=== PATIENT | female | born 1970 ===

== ENCOUNTER 2022-03-27 19:29 | Inpatient (IN) | payer OTHER ==
[~2022-03-27] VITALS: Ht 165.1 cm; Wt 68.0 kg
[2022-03-27] MEDS ORDERED: SODIUM CHLORIDE 0.9% 1,000 ML IV ONE ×2 (22:45)
[2022-03-27] MEDS ORDERED: ACETAMINOPHEN 1000 MG/ISO-OSM 100 ML IV ONE (22:45)
[2022-03-27] MEDS ORDERED: KETOROLAC TROMETHAMINE 30 MG/ML VIAL IVP ONE (22:45)
[2022-03-27 23:20] LABS: EOSINOPHILS % (AUTO) 0 % (1.0-6.0); MEAN CORPUSCULAR HEMOGLOBIN 27.2 pg (26.0-34.0); MEAN CORPUSCULAR HGB CONC 33.3 G/dL (31.0-37.0); MONOCYTES # (AUTO) 1.3 K/uL (0.1-1.0)
[2022-03-27 23:27] LABS: BASOPHILS % (AUTO) 0.3 % (0.0-2.0); HEMATOCRIT 35.1 % (36-46); HEMOGLOBIN 11.7 g/dL (12.0-16.0); LYMPHOCYTES % (AUTO) 4.4 % (22.0-44.0); MEAN CORPUSCULAR VOLUME 82 fL (80-100); MONOCYTES % (AUTO) 5.5 % (2.0-9.0); NEUTROPHILS # (AUTO) 21.3 K/uL (1.8-7.7); PLATELET COUNT (AUTO) 263 K/uL (150-450); RED BLOOD CELL COUNT(AUTO) 4.29 MIL/uL (4.00-5.20); RED CELL DISTRIBUTION WIDTH 16.3 % (11.5-14.5)
[2022-03-27 23:29] LABS: NEUTROPHILS % (AUTO) 89.8 % (40.0-70.0)
[2022-03-27 23:35] LABS: ANION GAP 7 mmol/L (8-16); CALCIUM, TOTAL 9.2 mg/dL (8.8-10.5); CARBON DIOXIDE 25 mmol/L (22-29); CHLORIDE 98 mmol/L (98-107); CREATININE 0.65 mg/dL (0.60-1.30); GLUCOSE,RANDOM 171 mg/dL (70-110); POTASSIUM 4.5 mmol/L (3.5-5.1); SODIUM SERUM 130 mmol/L (136-145); UREA NITROGEN, BLOOD 8 mg/dL (7-18)
[2022-03-27 23:37] LABS: GLOMERULAR FILTR. RATE CALC > 60 mL/min (>60)
[2022-03-27 23:46] LABS: PLATELET MORPHOLOGY COMMENT LARGE PLTS PRESENT
[2022-03-27 23:47] LABS: ALANINE AMINOTRANSFERASE 35 U/L (12-78); ALBUMIN 2.2 g/dL (3.4-5.0); ALKALINE PHOSPHATASE 150 U/L (46-116); ASPARTATE AMINOTRANSFERASE 15 U/L (15-37); BILIRUBIN,TOTAL 0.4 mg/dL (0.1-1.0); CREATINE KINASE, TOTAL ONLY 19 U/L (26-192); HCG,QUANTITATIVE 3 mIU/mL (0-6); LIPASE 46 U/L (73-393); TOTAL PROTEIN, SERUM 7.8 g/dL (6.4-8.2)
[2022-03-28 01:15] LABS: COVID AG,FIA SOURCE NASOPHARYNGEAL
[2022-03-28 01:18] LABS: APPEARANCE,URINE CLEAR (CLEAR); BILIRUBIN,URINE NEGATIVE (NEGATIVE); GLUCOSE, URINE (UA) NEGATIVE (NEGATIVE); KETONES,URINE NEGATIVE (NEGATIVE); LEUKOCYTE ESTERASE ,URINE NEGATIVE (NEGATIVE); NITRATE,URINE NEGATIVE (NEGATIVE); OCCULT BLOOD,URINE NEGATIVE (NEGATIVE); PH,URINE 7.5 (5.0-8.0); PROTEIN,URINE NEGATIVE (NEGATIVE); SPECIFIC GRAVITIY, URINE 1.008 (1.003-1.030); UROBILINOGEN,URINE <=1.0 mg/dL (<=1.0)
[2022-03-28 01:24] LABS: AMPHET/METH SCREEN,URINE NEGATIVE (NEGATIVE); BARBITURATE SCREEN, URINE NEGATIVE (NEGATIVE); BENZODIAZEPINES SCREEN,URINE NEGATIVE (NEGATIVE); CANNABINOID SCREEN,URINE NEGATIVE (NEGATIVE); COCAINE SCREEN,URINE NEGATIVE (NEGATIVE); METHADONE SCREEN, URINE NEGATIVE (NEGATIVE); OPIATE SCREEN,URINE NEGATIVE (NEGATIVE)
[2022-03-28 01:27] LABS: BACTERIA,URINE None Seen /HPF (None Seen); PHENCYCLIDINE SCREEN,URINE NEGATIVE (NEGATIVE); RBC,URINE None Seen /HPF (0-2); SQUAMOUS EPITHELIAL CELL,UR Rare /LPF (None Seen); WBC,URINE 0-2 /HPF (0-5)
[2022-03-28 01:35] LABS: INFLUENZA TYPE A NEGATIVE FOR TYPE A (NEGATIVE); INFLUENZA TYPE B NEGATIVE FOR TYPE B (NEGATIVE)
[2022-03-28] MEDS ORDERED: MORPHINE SULFATE 2 MG/ML SYRINGE IVP PRN (02:15)
[2022-03-28] MEDS ORDERED: ONDANSETRON HCL 4 MG/2 ML VIAL IVP PRN ×2 (02:15→03:30)
[2022-03-28] MEDS ORDERED: HYDROCODONE/ACETAMINOPHEN 5-325 MG TABLET PO PRN (02:15)
[2022-03-28] MEDS ORDERED: ACETAMINOPHEN 325 MG TABLET PO PRN ×2 (02:15→03:30)
[2022-03-28] MEDS ORDERED: RINGERS SOLUTION,LACTATED 1,000 ML IV SCH (03:30)
[2022-03-28] MEDS ORDERED: NALOXONE HCL 1 MG/ML 2 ML SYRINGE IVP PRN (03:30)
[2022-03-28] MEDS: MORPHINE SULFATE 4 MG/ML SYRINGE IVP PRN ×3 (04:04→21:52)
[2022-03-28] MEDS ORDERED: [UNRECOGNIZED DRUG - CODE] PO (04:25)
[2022-03-28] MEDS ORDERED: FOLI-130 PO (04:25)
[2022-03-28] MEDS ORDERED: METH2.5 PO (04:25)
[2022-03-28] MEDS ORDERED: FERR325T27 PO (04:25)
[2022-03-28] MEDS ORDERED: MELO-381 PO (04:25)
[2022-03-28] MEDS ORDERED: CHOL500043 PO (04:25)
[2022-03-28] MEDS: DEXAMETHASONE SOD PHOS 4 MG/ML VIAL IVP SCH (06:01)
[2022-03-28] MEDS ORDERED: CefTRIAXone 1 GM/DEXTROSE 50 ML IV ONE (06:15)
[2022-03-28] MEDS ORDERED: HEPARIN SODIUM,PORCINE 5,000 UNITS/ML VIAL SQ SCH (08:00)
[2022-03-28] MEDS: DOCUSATE SODIUM 100 MG CAPSULE PO SCH ×2 (08:36→21:51)
[2022-03-28] MEDS: FOLIC ACID 1 MG TABLET PO SCH (08:36)
[2022-03-28] MEDS: FAMOTIDINE 10 MG/ML 2 ML VIAL IVP SCH ×2 (08:37→22:59)
[2022-03-28] MEDS: MELOXICAM 7.5 MG TABLET PO SCH (08:37)
[2022-03-28] MEDS: FERROUS SULFATE 325 MG EC TABLET PO SCH (08:37)
[2022-03-28 21:00] VITALS: BP 141/78
[2022-03-28] MEDS ORDERED: VANCOMYCIN HCL 1.25 GM in DEXTROSE 5%-WATER 250 ML IV ONE (21:00)
[2022-03-28] MEDS ORDERED: SODIUM CHLORIDE 0.9% 250 ML IV ONE (21:53)
[2022-03-29 01:30] VITALS: BP 149/78
[2022-03-29] MEDS: MORPHINE SULFATE 4 MG/ML SYRINGE IVP PRN (02:41)
[2022-03-29 04:00] VITALS: BP 117/68
[2022-03-29 07:32] VITALS: BP 142/76
[2022-03-29 07:53] LABS: ANION GAP 7 mmol/L (8-16); CARBON DIOXIDE 25 mmol/L (22-29); CHLORIDE 102 mmol/L (98-107); CREATININE 0.58 mg/dL (0.60-1.30); GLUCOSE,RANDOM 133 mg/dL (70-110); POTASSIUM 3.7 mmol/L (3.5-5.1); SODIUM SERUM 134 mmol/L (136-145); UREA NITROGEN, BLOOD 9 mg/dL (7-18)
[2022-03-29 07:56] LABS: GLOMERULAR FILTR. RATE CALC > 60 mL/min (>60)
[2022-03-29] MEDS: VANCOMYCIN HCL 750 MG in DEXTROSE 5%-WATER 250 ML IV SCH ×2 (08:45→16:37)
[2022-03-29] MEDS: MELOXICAM 7.5 MG TABLET PO SCH (08:46)
[2022-03-29] MEDS: FERROUS SULFATE 325 MG EC TABLET PO SCH (08:46)
[2022-03-29] MEDS: DOCUSATE SODIUM 100 MG CAPSULE PO SCH ×2 (09:42→19:54)
[2022-03-29] MEDS: FAMOTIDINE 10 MG/ML 2 ML VIAL IVP SCH ×2 (09:43→19:55)
[2022-03-29] MEDS: DEXAMETHASONE SOD PHOS 4 MG/ML VIAL IVP SCH (09:43)
[2022-03-29] MEDS: FOLIC ACID 1 MG TABLET PO SCH (09:44)
[2022-03-29 15:35] LABS: BASOPHILS % (AUTO) 0.2 % (0.0-2.0); EOSINOPHILS % (AUTO) 0 % (1.0-6.0); HEMATOCRIT 35.6 % (36-46); HEMOGLOBIN 11.6 g/dL (12.0-16.0); LYMPHOCYTES # (AUTO) 1.6 K/uL (1.0-4.8); MEAN CORPUSCULAR HEMOGLOBIN 26.7 pg (26.0-34.0); MEAN CORPUSCULAR HGB CONC 32.6 G/dL (31.0-37.0); MEAN CORPUSCULAR VOLUME 82 fL (80-100); MONOCYTES # (AUTO) 0.4 K/uL (0.1-1.0); MONOCYTES % (AUTO) 2.5 % (2.0-9.0); PLATELET COUNT (AUTO) 275 K/uL (150-450); RED BLOOD CELL COUNT(AUTO) 4.35 MIL/uL (4.00-5.20); RED CELL DISTRIBUTION WIDTH 16.6 % (11.5-14.5)
[2022-03-29 15:37] LABS: NEUTROPHILS % (AUTO) 87.3 % (40.0-70.0)
[2022-03-29 15:47] VITALS: BP 146/75
[2022-03-29 15:48] LABS: ANION GAP 10 mmol/L (8-16); CARBON DIOXIDE 21 mmol/L (22-29); CHLORIDE 100 mmol/L (98-107); CREATININE 0.73 mg/dL (0.60-1.30); GLUCOSE,RANDOM 220 mg/dL (70-110); POTASSIUM 4.2 mmol/L (3.5-5.1); SODIUM SERUM 131 mmol/L (136-145); UREA NITROGEN, BLOOD 12 mg/dL (7-18)
[2022-03-29 15:50] LABS: GLOMERULAR FILTR. RATE CALC > 60 mL/min (>60)
[2022-03-29 15:54] LABS: ALANINE AMINOTRANSFERASE 39 U/L (12-78); ALBUMIN 1.8 g/dL (3.4-5.0); ALKALINE PHOSPHATASE 158 U/L (46-116); ASPARTATE AMINOTRANSFERASE 20 U/L (15-37); BILIRUBIN,TOTAL 0.3 mg/dL (0.1-1.0); TOTAL PROTEIN, SERUM 7.7 g/dL (6.4-8.2)
[2022-03-29] MEDS ORDERED: REMDESIVIR 200 MG in SODIUM CHLORIDE 0.9% 250 ML IV ONE (17:15)
[2022-03-29 21:00] VITALS: BP 140/84
[2022-03-30] MEDS: VANCOMYCIN HCL 750 MG in DEXTROSE 5%-WATER 250 ML IV SCH (00:16)
[2022-03-30] MEDS: MORPHINE SULFATE 4 MG/ML SYRINGE IVP PRN (00:17)
[2022-03-30 04:24] VITALS: BP 129/77
[2022-03-30 05:00] VITALS: BP 130/70
[2022-03-30 07:34] LABS: BASOPHILS % (AUTO) 0.2 % (0.0-2.0); EOSINOPHILS % (AUTO) 0 % (1.0-6.0); HEMATOCRIT 30.2 % (36-46); HEMOGLOBIN 10.2 g/dL (12.0-16.0); LYMPHOCYTES # (AUTO) 2.1 K/uL (1.0-4.8); MEAN CORPUSCULAR HEMOGLOBIN 27.2 pg (26.0-34.0); MEAN CORPUSCULAR HGB CONC 33.6 G/dL (31.0-37.0); MEAN CORPUSCULAR VOLUME 81 fL (80-100); MONOCYTES # (AUTO) 0.9 K/uL (0.1-1.0); MONOCYTES % (AUTO) 6.8 % (2.0-9.0); NEUTROPHILS # (AUTO) 10.1 K/uL (1.8-7.7); PLATELET COUNT (AUTO) 257 K/uL (150-450); RED BLOOD CELL COUNT(AUTO) 3.73 MIL/uL (4.00-5.20); RED CELL DISTRIBUTION WIDTH 16.8 % (11.5-14.5)
[2022-03-30 07:45] VITALS: BP 143/85
[2022-03-30 07:48] LABS: ALANINE AMINOTRANSFERASE 35 U/L (12-78); ALBUMIN 1.5 g/dL (3.4-5.0); ALKALINE PHOSPHATASE 131 U/L (46-116); ANION GAP 7 mmol/L (8-16); ASPARTATE AMINOTRANSFERASE 15 U/L (15-37); BILIRUBIN,TOTAL 0.3 mg/dL (0.1-1.0); CALCIUM, TOTAL 8.7 mg/dL (8.8-10.5); CARBON DIOXIDE 27 mmol/L (22-29); CHLORIDE 103 mmol/L (98-107); CREATININE 0.45 mg/dL (0.60-1.30); FERRITIN 568 ng/mL (8-252); GLUCOSE,RANDOM 114 mg/dL (70-110); POTASSIUM 3.6 mmol/L (3.5-5.1); SODIUM SERUM 137 mmol/L (136-145); TOTAL PROTEIN, SERUM 6.7 g/dL (6.4-8.2); UREA NITROGEN, BLOOD 15 mg/dL (7-18)
[2022-03-30 07:49] LABS: GLOMERULAR FILTR. RATE CALC > 60 mL/min (>60)
[2022-03-30 07:59] LABS: C-REACTIVE PROTEIN QUANT 26.39 mg/dL (0.00-0.30)
[2022-03-30] MEDS: VANCOMYCIN HCL 1 GM in DEXTROSE 5%-WATER 250 ML IV SCH ×2 (08:00→16:27)
[2022-03-30] MEDS ORDERED: GADOTERATE MEGLUMINE 10 MMOL/20 ML VIAL IVP ONE (08:59)
[2022-03-30] MEDS: DOCUSATE SODIUM 100 MG CAPSULE PO SCH ×2 (09:00→20:42)
[2022-03-30] MEDS ORDERED: LORazepam 2 MG/ML VIAL IVP ONE (10:30)
[2022-03-30 16:03] VITALS: BP 132/68
[2022-03-30] MEDS: FAMOTIDINE 10 MG/ML 2 ML VIAL IVP SCH ×2 (16:26→21:00)
[2022-03-30] MEDS: MELOXICAM 7.5 MG TABLET PO SCH (16:26)
[2022-03-30] MEDS: DEXAMETHASONE SOD PHOS 4 MG/ML VIAL IVP SCH (16:27)
[2022-03-30] MEDS: FOLIC ACID 1 MG TABLET PO SCH (16:27)
[2022-03-30] MEDS: FERROUS SULFATE 325 MG EC TABLET PO SCH (16:33)
[2022-03-30] MEDS: REMDESIVIR 100 MG in SODIUM CHLORIDE 0.9% 250 ML IV SCH (20:41)
[2022-03-30 20:58] VITALS: BP 131/79
[2022-03-30] MEDS ORDERED: SODIUM CHLORIDE 0.9% 250 ML IV ONE (21:13)
[2022-03-30] MEDS: HYDROCODONE/ACETAMINOPHEN 5-325 MG TABLET PO PRN (21:37)
[2022-03-31] MEDS: VANCOMYCIN HCL 1 GM in DEXTROSE 5%-WATER 250 ML IV SCH ×2 (00:33→08:12)
[2022-03-31 04:04] VITALS: BP 135/76
[2022-03-31 07:09] LABS: BASOPHILS % (AUTO) 0.2 % (0.0-2.0); EOSINOPHILS % (AUTO) 0 % (1.0-6.0); HEMATOCRIT 30.9 % (36-46); HEMOGLOBIN 10.4 g/dL (12.0-16.0); LYMPHOCYTES # (AUTO) 1.6 K/uL (1.0-4.8); LYMPHOCYTES % (AUTO) 17.5 % (22.0-44.0); MEAN CORPUSCULAR HEMOGLOBIN 27.4 pg (26.0-34.0); MEAN CORPUSCULAR HGB CONC 33.6 G/dL (31.0-37.0); MEAN CORPUSCULAR VOLUME 81 fL (80-100); MONOCYTES # (AUTO) 0.6 K/uL (0.1-1.0); MONOCYTES % (AUTO) 7.2 % (2.0-9.0); NEUTROPHILS # (AUTO) 6.7 K/uL (1.8-7.7); NEUTROPHILS % (AUTO) 75.1 % (40.0-70.0); PLATELET COUNT (AUTO) 285 K/uL (150-450); RED BLOOD CELL COUNT(AUTO) 3.79 MIL/uL (4.00-5.20); RED CELL DISTRIBUTION WIDTH 16.6 % (11.5-14.5)
[2022-03-31 07:24] LABS: ALANINE AMINOTRANSFERASE 31 U/L (12-78); ALBUMIN 1.6 g/dL (3.4-5.0); ALKALINE PHOSPHATASE 122 U/L (46-116); ANION GAP 7 mmol/L (8-16); ASPARTATE AMINOTRANSFERASE 17 U/L (15-37); BILIRUBIN,TOTAL 0.3 mg/dL (0.1-1.0); CALCIUM, TOTAL 8.6 mg/dL (8.8-10.5); CARBON DIOXIDE 25 mmol/L (22-29); CHLORIDE 104 mmol/L (98-107); CREATININE 0.45 mg/dL (0.60-1.30); GLUCOSE,RANDOM 124 mg/dL (70-110); POTASSIUM 3.9 mmol/L (3.5-5.1); SODIUM SERUM 136 mmol/L (136-145); TOTAL PROTEIN, SERUM 6.7 g/dL (6.4-8.2); UREA NITROGEN, BLOOD 14 mg/dL (7-18)
[2022-03-31 07:25] LABS: GLOMERULAR FILTR. RATE CALC > 60 mL/min (>60)
[2022-03-31 07:31] VITALS: BP 134/78
[2022-03-31 07:39] LABS: C-REACTIVE PROTEIN QUANT 15.99 mg/dL (0.00-0.30)
[2022-03-31] MEDS: FOLIC ACID 1 MG TABLET PO SCH (08:12)
[2022-03-31] MEDS: MELOXICAM 7.5 MG TABLET PO SCH (08:12)
[2022-03-31] MEDS: HYDROCODONE/ACETAMINOPHEN 5-325 MG TABLET PO PRN (08:12)
[2022-03-31] MEDS: FERROUS SULFATE 325 MG EC TABLET PO SCH (08:12)
[2022-03-31] MEDS: DOCUSATE SODIUM 100 MG CAPSULE PO SCH ×2 (08:12→20:25)
[2022-03-31] MEDS: DEXAMETHASONE SOD PHOS 4 MG/ML VIAL IVP SCH (08:16)
[2022-03-31] MEDS: FAMOTIDINE 10 MG/ML 2 ML VIAL IVP SCH ×2 (08:17→20:26)
[2022-03-31 15:02] VITALS: BP 103/68
[2022-03-31] MEDS: CeFAZolin 2 GM/DEXTROSE 50 ML IV SCH (16:15)
[2022-03-31] MEDS: HEPARIN SODIUM,PORCINE 5,000 UNITS/ML VIAL SQ SCH (16:16)
[2022-03-31] MEDS: REMDESIVIR 100 MG in SODIUM CHLORIDE 0.9% 250 ML IV SCH (17:54)
[2022-03-31 20:38] VITALS: BP 147/82
[2022-04-01] MEDS: CeFAZolin 2 GM/DEXTROSE 50 ML IV SCH ×4 (00:20→23:00)
[2022-04-01] MEDS: HEPARIN SODIUM,PORCINE 5,000 UNITS/ML VIAL SQ SCH ×4 (00:20→23:00)
[2022-04-01] MEDS: HYDROCODONE/ACETAMINOPHEN 5-325 MG TABLET PO PRN ×2 (01:10→08:39)
[2022-04-01 04:34] VITALS: BP 139/84
[2022-04-01 06:31] LABS: ALANINE AMINOTRANSFERASE 26 U/L (12-78); ALBUMIN 1.7 g/dL (3.4-5.0); ALKALINE PHOSPHATASE 117 U/L (46-116); ANION GAP 6 mmol/L (8-16); ASPARTATE AMINOTRANSFERASE 15 U/L (15-37); BILIRUBIN,TOTAL 0.3 mg/dL (0.1-1.0); CALCIUM, TOTAL 8.5 mg/dL (8.8-10.5); CARBON DIOXIDE 26 mmol/L (22-29); CHLORIDE 105 mmol/L (98-107); CREATININE 0.45 mg/dL (0.60-1.30); GLUCOSE,RANDOM 95 mg/dL (70-110); POTASSIUM 3.5 mmol/L (3.5-5.1); SODIUM SERUM 137 mmol/L (136-145); TOTAL PROTEIN, SERUM 6.6 g/dL (6.4-8.2); UREA NITROGEN, BLOOD 14 mg/dL (7-18)
[2022-04-01 06:33] LABS: GLOMERULAR FILTR. RATE CALC > 60 mL/min (>60)
[2022-04-01 06:54] LABS: EOSINOPHILS % (AUTO) 0.2 % (1.0-6.0); HEMATOCRIT 32.7 % (36-46); HEMOGLOBIN 10.7 g/dL (12.0-16.0); LYMPHOCYTES # (AUTO) 3.7 K/uL (1.0-4.8); LYMPHOCYTES % (AUTO) 32.6 % (22.0-44.0); MEAN CORPUSCULAR HEMOGLOBIN 26.5 pg (26.0-34.0); MEAN CORPUSCULAR HGB CONC 32.8 G/dL (31.0-37.0); MEAN CORPUSCULAR VOLUME 81 fL (80-100); MONOCYTES % (AUTO) 8.7 % (2.0-9.0); NEUTROPHILS # (AUTO) 6.6 K/uL (1.8-7.7); NEUTROPHILS % (AUTO) 58.5 % (40.0-70.0); PLATELET COUNT (AUTO) 309 K/uL (150-450); RED BLOOD CELL COUNT(AUTO) 4.05 MIL/uL (4.00-5.20); RED CELL DISTRIBUTION WIDTH 16.6 % (11.5-14.5)
[2022-04-01 07:16] VITALS: BP 102/77
[2022-04-01] MEDS: FAMOTIDINE 10 MG/ML 2 ML VIAL IVP SCH ×2 (08:11→19:51)
[2022-04-01] MEDS: MELOXICAM 7.5 MG TABLET PO SCH (08:11)
[2022-04-01] MEDS: FOLIC ACID 1 MG TABLET PO SCH (08:11)
[2022-04-01] MEDS: FERROUS SULFATE 325 MG EC TABLET PO SCH (08:11)
[2022-04-01] MEDS: DEXAMETHASONE SOD PHOS 4 MG/ML VIAL IVP SCH (08:11)
[2022-04-01] MEDS: DOCUSATE SODIUM 100 MG CAPSULE PO SCH ×2 (08:12→19:51)
[2022-04-01 16:06] VITALS: BP 128/82
[2022-04-01] MEDS: REMDESIVIR 100 MG in SODIUM CHLORIDE 0.9% 250 ML IV SCH (17:17)
[2022-04-01 19:40] VITALS: BP 120/64
[2022-04-02 04:10] VITALS: BP 136/74
[2022-04-02 06:40] LABS: BASOPHILS % (AUTO) 0.1 % (0.0-2.0); EOSINOPHILS % (AUTO) 0.3 % (1.0-6.0); HEMATOCRIT 33.1 % (36-46); HEMOGLOBIN 10.9 g/dL (12.0-16.0); LYMPHOCYTES # (AUTO) 5.1 K/uL (1.0-4.8); LYMPHOCYTES % (AUTO) 36.1 % (22.0-44.0); MEAN CORPUSCULAR HEMOGLOBIN 26.3 pg (26.0-34.0); MEAN CORPUSCULAR HGB CONC 33.1 G/dL (31.0-37.0); MEAN CORPUSCULAR VOLUME 80 fL (80-100); MONOCYTES % (AUTO) 6.8 % (2.0-9.0); NEUTROPHILS # (AUTO) 8.1 K/uL (1.8-7.7); NEUTROPHILS % (AUTO) 56.7 % (40.0-70.0); PLATELET COUNT (AUTO) 316 K/uL (150-450); RED BLOOD CELL COUNT(AUTO) 4.16 MIL/uL (4.00-5.20); RED CELL DISTRIBUTION WIDTH 16.8 % (11.5-14.5)
[2022-04-02 07:04] LABS: ALANINE AMINOTRANSFERASE 28 U/L (12-78); ALBUMIN 1.9 g/dL (3.4-5.0); ALKALINE PHOSPHATASE 123 U/L (46-116); ANION GAP 5 mmol/L (8-16); ASPARTATE AMINOTRANSFERASE 16 U/L (15-37); BILIRUBIN,TOTAL 0.4 mg/dL (0.1-1.0); CALCIUM, TOTAL 8.4 mg/dL (8.8-10.5); CARBON DIOXIDE 28 mmol/L (22-29); CHLORIDE 102 mmol/L (98-107); CREATININE 0.47 mg/dL (0.60-1.30); GLOMERULAR FILTR. RATE CALC > 60 mL/min (>60); GLUCOSE,RANDOM 96 mg/dL (70-110); POTASSIUM 3.3 mmol/L (3.5-5.1); SODIUM SERUM 135 mmol/L (136-145); TOTAL PROTEIN, SERUM 6.5 g/dL (6.4-8.2); UREA NITROGEN, BLOOD 11 mg/dL (7-18)
[2022-04-02] MEDS: HEPARIN SODIUM,PORCINE 5,000 UNITS/ML VIAL SQ SCH ×3 (08:56→23:29)
[2022-04-02] MEDS: FERROUS SULFATE 325 MG EC TABLET PO SCH (08:57)
[2022-04-02] MEDS: FOLIC ACID 1 MG TABLET PO SCH (08:57)
[2022-04-02] MEDS: DOCUSATE SODIUM 100 MG CAPSULE PO SCH ×3 (08:57→20:03)
[2022-04-02] MEDS: CeFAZolin 2 GM/DEXTROSE 50 ML IV SCH ×3 (08:57→23:29)
[2022-04-02] MEDS: DEXAMETHASONE SOD PHOS 4 MG/ML VIAL IVP SCH (08:58)
[2022-04-02] MEDS: CHOLECALCIFEROL (VIT D3) 50,000 UNITS [1,250 MCG] CAPSULE PO SCH (09:00)
[2022-04-02] MEDS: METHOTREXATE SODIUM 2.5 MG TABLET PO SCH (09:00)
[2022-04-02] MEDS: MELOXICAM 7.5 MG TABLET PO SCH (09:00)
[2022-04-02] MEDS: HYDROCODONE/ACETAMINOPHEN 5-325 MG TABLET PO PRN (12:06)
[2022-04-02] MEDS: FAMOTIDINE 10 MG/ML 2 ML VIAL IVP SCH ×2 (12:06→20:03)
[2022-04-02] MEDS ORDERED: POTASSIUM CHLORIDE 20 MEQ ER TABLET PO ONE (13:45)
[2022-04-02] MEDS ORDERED: GADOTERATE MEGLUMINE 10 MMOL/20 ML VIAL IVP ONE (15:20)
[2022-04-02] MEDS: REMDESIVIR 100 MG in SODIUM CHLORIDE 0.9% 250 ML IV SCH (17:17)
[2022-04-02 19:36] VITALS: BP 108/69
[2022-04-02] MEDS ORDERED: SODIUM CHLORIDE 0.9% 250 ML IV ONE (23:46)
[2022-04-03 06:44] LABS: BASOPHILS % (AUTO) 0.1 % (0.0-2.0); EOSINOPHILS % (AUTO) 0.4 % (1.0-6.0); HEMATOCRIT 32.5 % (36-46); HEMOGLOBIN 10.7 g/dL (12.0-16.0); LYMPHOCYTES # (AUTO) 4.6 K/uL (1.0-4.8); LYMPHOCYTES % (AUTO) 29.3 % (22.0-44.0); MEAN CORPUSCULAR HEMOGLOBIN 26.7 pg (26.0-34.0); MEAN CORPUSCULAR HGB CONC 32.8 G/dL (31.0-37.0); MEAN CORPUSCULAR VOLUME 81 fL (80-100); MONOCYTES # (AUTO) 0.8 K/uL (0.1-1.0); MONOCYTES % (AUTO) 4.9 % (2.0-9.0); NEUTROPHILS # (AUTO) 10.2 K/uL (1.8-7.7); NEUTROPHILS % (AUTO) 65.3 % (40.0-70.0); PLATELET COUNT (AUTO) 322 K/uL (150-450); RED CELL DISTRIBUTION WIDTH 17.1 % (11.5-14.5)
[2022-04-03 07:04] LABS: ALANINE AMINOTRANSFERASE 26 U/L (12-78); ALBUMIN 1.7 g/dL (3.4-5.0); ALKALINE PHOSPHATASE 108 U/L (46-116); ANION GAP 7 mmol/L (8-16); ASPARTATE AMINOTRANSFERASE 19 U/L (15-37); BILIRUBIN,TOTAL 0.3 mg/dL (0.1-1.0); CALCIUM, TOTAL 8.7 mg/dL (8.8-10.5); CARBON DIOXIDE 25 mmol/L (22-29); CHLORIDE 101 mmol/L (98-107); CREATININE 0.46 mg/dL (0.60-1.30); GLUCOSE,RANDOM 102 mg/dL (70-110); SODIUM SERUM 133 mmol/L (136-145); TOTAL PROTEIN, SERUM 6.5 g/dL (6.4-8.2); UREA NITROGEN, BLOOD 14 mg/dL (7-18)
[2022-04-03 07:05] LABS: GLOMERULAR FILTR. RATE CALC > 60 mL/min (>60)
[2022-04-03] MEDS: HEPARIN SODIUM,PORCINE 5,000 UNITS/ML VIAL SQ SCH ×4 (08:00→23:26)
[2022-04-03] MEDS: DEXAMETHASONE SOD PHOS 4 MG/ML VIAL IVP SCH (08:34)
[2022-04-03] MEDS: FERROUS SULFATE 325 MG EC TABLET PO SCH (08:35)
[2022-04-03] MEDS: FOLIC ACID 1 MG TABLET PO SCH (08:35)
[2022-04-03] MEDS: FAMOTIDINE 10 MG/ML 2 ML VIAL IVP SCH ×2 (08:35→20:05)
[2022-04-03] MEDS: MELOXICAM 7.5 MG TABLET PO SCH (08:35)
[2022-04-03] MEDS: CeFAZolin 2 GM/DEXTROSE 50 ML IV SCH ×3 (08:36→23:27)
[2022-04-03 12:27] LABS: COVID AG,FIA SOURCE NASAL SWAB
[2022-04-03 15:43] VITALS: BP 114/75
[2022-04-03 19:50] VITALS: BP 116/77
[2022-04-03] MEDS: DOCUSATE SODIUM 100 MG CAPSULE PO SCH ×2 (20:05→21:00)
[2022-04-04 04:15] VITALS: BP 100/71
[2022-04-04 06:32] LABS: BASOPHILS % (AUTO) 0.1 % (0.0-2.0); EOSINOPHILS % (AUTO) 0.1 % (1.0-6.0); HEMATOCRIT 32.9 % (36-46); HEMOGLOBIN 10.7 g/dL (12.0-16.0); LYMPHOCYTES # (AUTO) 3.2 K/uL (1.0-4.8); LYMPHOCYTES % (AUTO) 24.8 % (22.0-44.0); MEAN CORPUSCULAR HEMOGLOBIN 26.4 pg (26.0-34.0); MEAN CORPUSCULAR HGB CONC 32.5 G/dL (31.0-37.0); MEAN CORPUSCULAR VOLUME 81 fL (80-100); MONOCYTES # (AUTO) 0.7 K/uL (0.1-1.0); MONOCYTES % (AUTO) 5.7 % (2.0-9.0); NEUTROPHILS # (AUTO) 8.9 K/uL (1.8-7.7); NEUTROPHILS % (AUTO) 69.3 % (40.0-70.0); PLATELET COUNT (AUTO) 371 K/uL (150-450); RED BLOOD CELL COUNT(AUTO) 4.05 MIL/uL (4.00-5.20); RED CELL DISTRIBUTION WIDTH 16.8 % (11.5-14.5)
[2022-04-04 07:09] LABS: ALANINE AMINOTRANSFERASE 22 U/L (12-78); ALBUMIN 1.9 g/dL (3.4-5.0); ALKALINE PHOSPHATASE 115 U/L (46-116); ANION GAP 8 mmol/L (8-16); ASPARTATE AMINOTRANSFERASE 17 U/L (15-37); BILIRUBIN,TOTAL 0.3 mg/dL (0.1-1.0); C-REACTIVE PROTEIN QUANT 11.08 mg/dL (0.00-0.30); CALCIUM, TOTAL 8.6 mg/dL (8.8-10.5); CARBON DIOXIDE 25 mmol/L (22-29); CHLORIDE 99 mmol/L (98-107); CREATININE 0.48 mg/dL (0.60-1.30); GLUCOSE,RANDOM 130 mg/dL (70-110); POTASSIUM 3.9 mmol/L (3.5-5.1); SODIUM SERUM 132 mmol/L (136-145); TOTAL PROTEIN, SERUM 6.9 g/dL (6.4-8.2); UREA NITROGEN, BLOOD 15 mg/dL (7-18)
[2022-04-04 07:10] LABS: GLOMERULAR FILTR. RATE CALC > 60 mL/min (>60)
[2022-04-04] MEDS ORDERED: LIDOCAINE 2% VISCOUS 15 ML SOLUTION UDCUP ONE (07:19)
[2022-04-04 07:44] VITALS: BP 115/56
[2022-04-04] MEDS ORDERED: FentaNYL CITRATE PF 100 MCG/2 ML VIAL ONE (07:51)
[2022-04-04] MEDS ORDERED: MIDAZOLAM HCL 2 MG/2 ML VIAL ONE (07:51)
[2022-04-04] MEDS ORDERED: LIDOCAINE 2% VISCOUS 15 ML SOLUTION UDCUP PO ONE (08:00)
[2022-04-04] MEDS ORDERED: MIDAZOLAM HCL 2 MG/2 ML VIAL IVP ONE ×2 (08:00→08:15)
[2022-04-04] MEDS ORDERED: FentaNYL CITRATE PF 100 MCG/2 ML VIAL IVP ONE ×2 (08:00→08:15)
[2022-04-04 08:22] VITALS: BP 107/59
[2022-04-04] MEDS: DOCUSATE SODIUM 100 MG CAPSULE PO SCH ×3 (09:00→20:11)
[2022-04-04] MEDS: CeFAZolin 2 GM/DEXTROSE 50 ML IV SCH ×3 (09:22→23:41)
[2022-04-04] MEDS: DEXAMETHASONE SOD PHOS 4 MG/ML VIAL IVP SCH (09:33)
[2022-04-04] MEDS: FAMOTIDINE 10 MG/ML 2 ML VIAL IVP SCH ×2 (09:33→20:12)
[2022-04-04] MEDS: FERROUS SULFATE 325 MG EC TABLET PO SCH (09:35)
[2022-04-04] MEDS: FOLIC ACID 1 MG TABLET PO SCH (09:35)
[2022-04-04] MEDS: HEPARIN SODIUM,PORCINE 5,000 UNITS/ML VIAL SQ SCH ×3 (09:35→23:42)
[2022-04-04] MEDS: MELOXICAM 7.5 MG TABLET PO SCH (09:42)
[2022-04-04 20:16] VITALS: BP 125/73
[2022-04-05 03:50] VITALS: BP 123/67
[2022-04-05 06:54] LABS: BASOPHILS % (AUTO) 0.1 % (0.0-2.0); EOSINOPHILS % (AUTO) 0.1 % (1.0-6.0); HEMATOCRIT 33.6 % (36-46); HEMOGLOBIN 10.9 g/dL (12.0-16.0); LYMPHOCYTES # (AUTO) 3.2 K/uL (1.0-4.8); LYMPHOCYTES % (AUTO) 25.4 % (22.0-44.0); MEAN CORPUSCULAR HEMOGLOBIN 26.7 pg (26.0-34.0); MEAN CORPUSCULAR HGB CONC 32.5 G/dL (31.0-37.0); MEAN CORPUSCULAR VOLUME 82 fL (80-100); MONOCYTES # (AUTO) 0.8 K/uL (0.1-1.0); MONOCYTES % (AUTO) 6.7 % (2.0-9.0); NEUTROPHILS # (AUTO) 8.6 K/uL (1.8-7.7); NEUTROPHILS % (AUTO) 67.7 % (40.0-70.0); PLATELET COUNT (AUTO) 382 K/uL (150-450); RED BLOOD CELL COUNT(AUTO) 4.09 MIL/uL (4.00-5.20); RED CELL DISTRIBUTION WIDTH 16.8 % (11.5-14.5)
[2022-04-05 07:16] LABS: ALANINE AMINOTRANSFERASE 19 U/L (12-78); ALKALINE PHOSPHATASE 119 U/L (46-116); ANION GAP 8 mmol/L (8-16); ASPARTATE AMINOTRANSFERASE 15 U/L (15-37); BILIRUBIN,TOTAL 0.3 mg/dL (0.1-1.0); CALCIUM, TOTAL 8.9 mg/dL (8.8-10.5); CARBON DIOXIDE 22 mmol/L (22-29); CHLORIDE 101 mmol/L (98-107); CREATININE 0.51 mg/dL (0.60-1.30); GLUCOSE,RANDOM 118 mg/dL (70-110); POTASSIUM 3.7 mmol/L (3.5-5.1); SODIUM SERUM 131 mmol/L (136-145); UREA NITROGEN, BLOOD 18 mg/dL (7-18)
[2022-04-05 07:19] LABS: GLOMERULAR FILTR. RATE CALC > 60 mL/min (>60)
[2022-04-05 07:41] VITALS: BP 133/75
[2022-04-05] MEDS: FOLIC ACID 1 MG TABLET PO SCH (08:00)
[2022-04-05] MEDS: FAMOTIDINE 10 MG/ML 2 ML VIAL IVP SCH ×2 (08:01→20:21)
[2022-04-05] MEDS: FERROUS SULFATE 325 MG EC TABLET PO SCH (08:01)
[2022-04-05] MEDS: DOCUSATE SODIUM 100 MG CAPSULE PO SCH ×3 (08:01→20:26)
[2022-04-05] MEDS: HEPARIN SODIUM,PORCINE 5,000 UNITS/ML VIAL SQ SCH ×3 (08:01→23:49)
[2022-04-05] MEDS: DEXAMETHASONE SOD PHOS 4 MG/ML VIAL IVP SCH (08:01)
[2022-04-05] MEDS: MELOXICAM 7.5 MG TABLET PO SCH (08:01)
[2022-04-05] MEDS: CeFAZolin 2 GM/DEXTROSE 50 ML IV SCH ×3 (08:02→23:45)
[2022-04-05 15:01] VITALS: BP 140/84
[2022-04-05 20:15] VITALS: BP 131/67
[2022-04-06 05:15] VITALS: BP 120/72
[2022-04-06 07:27] VITALS: BP 115/79
[2022-04-06] MEDS: FERROUS SULFATE 325 MG EC TABLET PO SCH (07:51)
[2022-04-06] MEDS: DEXAMETHASONE SOD PHOS 4 MG/ML VIAL IVP SCH (07:51)
[2022-04-06] MEDS: MELOXICAM 7.5 MG TABLET PO SCH (07:52)
[2022-04-06] MEDS: FAMOTIDINE 10 MG/ML 2 ML VIAL IVP SCH ×2 (07:52→20:01)
[2022-04-06] MEDS: FOLIC ACID 1 MG TABLET PO SCH (07:52)
[2022-04-06] MEDS: HEPARIN SODIUM,PORCINE 5,000 UNITS/ML VIAL SQ SCH ×2 (07:53→15:47)
[2022-04-06] MEDS: CeFAZolin 2 GM/DEXTROSE 50 ML IV SCH ×2 (07:53→15:39)
[2022-04-06] MEDS: DOCUSATE SODIUM 100 MG CAPSULE PO SCH ×2 (07:54→20:01)
[2022-04-06] MEDS ORDERED: CEFA2FRO IV (13:42)
[2022-04-06] MEDS ORDERED: HEPA500018 SQ (13:43)
[2022-04-06] MEDS ORDERED: METH2.5 PO (13:43)
[2022-04-06] MEDS ORDERED: HYDR-4723 PO (13:44)
[2022-04-06] MEDS ORDERED: ACET-2247 PO (13:44)
[2022-04-06 15:38] VITALS: BP 133/88
[2022-04-06 19:50] VITALS: BP 125/84
[2022-04-07] MEDS: CeFAZolin 2 GM/DEXTROSE 50 ML IV SCH ×3 (00:16→16:11)
[2022-04-07 04:33] VITALS: BP 121/68
[2022-04-07 08:23] VITALS: BP 124/80
[2022-04-07] MEDS: FERROUS SULFATE 325 MG EC TABLET PO SCH (08:53)
[2022-04-07] MEDS: FOLIC ACID 1 MG TABLET PO SCH (08:53)
[2022-04-07] MEDS: FAMOTIDINE 10 MG/ML 2 ML VIAL IVP SCH ×2 (08:53→20:24)
[2022-04-07] MEDS: DOCUSATE SODIUM 100 MG CAPSULE PO SCH ×3 (08:53→20:24)
[2022-04-07] MEDS: MELOXICAM 7.5 MG TABLET PO SCH (08:53)
[2022-04-07] MEDS: DEXAMETHASONE SOD PHOS 4 MG/ML VIAL IVP SCH (08:55)
[2022-04-07] MEDS: HEPARIN SODIUM,PORCINE 5,000 UNITS/ML VIAL SQ SCH ×3 (08:56→16:12)
[2022-04-07 20:10] VITALS: BP 114/81
[2022-04-08] MEDS: CeFAZolin 2 GM/DEXTROSE 50 ML IV SCH ×4 (00:20→23:53)
[2022-04-08 04:00] VITALS: BP_SYST 102; BP_SYST 111; BP_DIAS 65; BP_DIAS 83
[2022-04-08 07:23] VITALS: BP 93/66
[2022-04-08] MEDS: DOCUSATE SODIUM 100 MG CAPSULE PO SCH ×3 (08:30→20:54)
[2022-04-08] MEDS: DEXAMETHASONE SOD PHOS 4 MG/ML VIAL IVP SCH (08:31)
[2022-04-08] MEDS: FERROUS SULFATE 325 MG EC TABLET PO SCH (08:31)
[2022-04-08] MEDS: HEPARIN SODIUM,PORCINE 5,000 UNITS/ML VIAL SQ SCH ×4 (08:31→23:53)
[2022-04-08] MEDS: MELOXICAM 7.5 MG TABLET PO SCH (08:31)
[2022-04-08] MEDS: FOLIC ACID 1 MG TABLET PO SCH (08:31)
[2022-04-08] MEDS: FAMOTIDINE 10 MG/ML 2 ML VIAL IVP SCH ×2 (08:33→21:16)
[2022-04-08 15:05] VITALS: BP 111/64
[2022-04-08 20:05] VITALS: BP 127/74
[2022-04-09 04:51] VITALS: BP 103/57
[2022-04-09 07:40] VITALS: BP 129/61
[2022-04-09] MEDS: FOLIC ACID 1 MG TABLET PO SCH (08:52)
[2022-04-09] MEDS: HEPARIN SODIUM,PORCINE 5,000 UNITS/ML VIAL SQ SCH ×2 (08:52→15:34)
[2022-04-09] MEDS: MELOXICAM 7.5 MG TABLET PO SCH (08:52)
[2022-04-09] MEDS: CHOLECALCIFEROL (VIT D3) 50,000 UNITS [1,250 MCG] CAPSULE PO SCH (08:52)
[2022-04-09] MEDS: METHOTREXATE SODIUM 2.5 MG TABLET PO SCH ×2 (08:52→09:00)
[2022-04-09] MEDS: FERROUS SULFATE 325 MG EC TABLET PO SCH (08:52)
[2022-04-09] MEDS: FAMOTIDINE 10 MG/ML 2 ML VIAL IVP SCH (08:52)
[2022-04-09] MEDS: DOCUSATE SODIUM 100 MG CAPSULE PO SCH (08:53)
[2022-04-09] MEDS: CeFAZolin 2 GM/DEXTROSE 50 ML IV SCH ×2 (08:55→15:34)
[2022-04-09 15:15] VITALS: BP 99/64
== END 2022-04-09 16:35 | DRG 720 ==
LOC: EMS 19:34 → AHU 03-28 04:00 → 6N 03-28 19:00
PROVIDERS: ADMIT Internal Medicine; ATTEND Internal Medicine
PROC: XW033E5 Introduction of Remdesivir Anti-infective into Peripheral Vein, Percutaneous Approach, New Technology Group 5 (ICD-10-PCS; principal; 2022-03-29)
PROC: B24BZZ4 Ultrasonography of Heart with Aorta, Transesophageal (ICD-10-PCS; 2022-04-04)
PROC: 05HF33Z Insertion of Infusion Device into Left Cephalic Vein, Percutaneous Approach (ICD-10-PCS; 2022-04-06)
DX: A41.2 Sepsis due to unspecified staphylococcus (principal); D84.9 Immunodeficiency, unspecified; E43 Unspecified severe protein-calorie malnutrition; U07.1 COVID-19; M06.9 Rheumatoid arthritis, unspecified; E87.6 Hypokalemia; R09.02 Hypoxemia; B95.61 Methicillin susceptible Staphylococcus aureus infection as the cause of diseases classified elsewhere; Z68.24 Body mass index [BMI] 24.0-24.9, adult; Z79.631 Long term (current) use of antimetabolite agent
CPT/HCPCS: 36245; 36569; 51701; 71045; 72158; 73521; 73720; 73723; 74176; 76937; 80048; 80053; 80202; 81001; 82550; 82728; 83036; 83605; 83690; 84145; 84702; 85025; 85379; 85651; 86140; 87040; 87077; 87205; 87804; 93005; 93306; 93312; 93970; 96361; 96365; 96368; 96375; 99285; J0131; J0690; J0696; J1100; J1644; J1885; J2060; J2250; J2270; J3010; J3370; J3490; J7030; J7050; J7060; J7120; J8610; Q9967; 36415-L1; 36415-TC